=== PATIENT | female | born 1945 | race Caucasian/White ===

== ENCOUNTER 2018-04-11 09:04 | Inpatient (IN) | payer MEDICARE, OTHER ==
[2018-04-11] VITALS (11 sets, daily range): BP systolic 139–189; BP diastolic 75–100
[~2018-04-11] VITALS: Ht 162.6 cm; Wt 62.8 kg
[2018-04-11 09:38] LABS: BASOPHILS % (AUTO) 0 % (0-10); EOSINOPHILS # (AUTO) 0.1 10^3/uL (0.0-0.3); EOSINOPHILS % (AUTO) 1 % (0-10); HEMATOCRIT 40 % (35-52); HEMOGLOBIN 13.5 G/DL (11.5-16.0); LYMPHOCYTES # (AUTO) 1.3 X 10^3 (1.0-4.0); LYMPHOCYTES % (AUTO) 21 % (12-44); MEAN CORPUSCULAR HEMOGLOBIN 29 PG (25-34); MEAN CORPUSCULAR HGB CONC 33 G/DL (32-36); MEAN CORPUSCULAR VOLUME 86 FL (80-99); MEAN PLATELET VOLUME 10.2 FL (7.4-10.4); MONOCYTES # (AUTO) 0.6 X 10^3 (0.0-1.0); MONOCYTES % (AUTO) 9 % (0-12); NEUTROPHILS # (AUTO) 4.3 X 10^3 (1.8-7.8); NEUTROPHILS % (AUTO) 69 % (42-75); PLATELET COUNT 279 10^3/uL (130-400); RED BLOOD COUNT 4.72 10^6/uL (4.35-5.85); RED CELL DISTRIBUTION WIDTH 18.3 % (10.0-14.5); WHITE BLOOD COUNT 6.3 10^3/uL (4.3-11.0)
[2018-04-11 09:46] LABS: PROTHROMBIN TIME PATIENT 12.9 SEC (12.2-14.7)
[2018-04-11] MEDS ORDERED: FIORCET (09:51)
[2018-04-11] MEDS ORDERED: SUCR1TAB36 PO (09:51)
[2018-04-11] MEDS ORDERED: FLEC100T PO (09:51)
[2018-04-11] MEDS ORDERED: HYDR-3812 PO (09:52)
[2018-04-11] MEDS ORDERED: RANI150T90 PO (09:52)
[2018-04-11 09:53] LABS: ALANINE AMINOTRANSFERASE 12 U/L (0-55); ALBUMIN 4.5 GM/DL (3.2-4.5); ALKALINE PHOSPHATASE 66 U/L (40-136); BILIRUBIN,TOTAL 0.5 MG/DL (0.1-1.0); BUN/CREATININE RATIO 10; CALCIUM 9.5 MG/DL (8.5-10.1); CARBON DIOXIDE 18 MMOL/L (21-32); CHLORIDE 103 MMOL/L (98-107); CREATININE SERUM 0.82 MG/DL (0.60-1.30); GFR ESTIMATED > 60; GLUCOSE 107 MG/DL (70-105); MAGNESIUM 2.1 MG/DL (1.8-2.4); POTASSIUM 2.6 MMOL/L (3.6-5.0); SODIUM 139 MMOL/L (135-145); TOTAL PROTEIN 7.5 GM/DL (6.4-8.2)
[2018-04-11] MEDS ORDERED: NITROGLYCERIN 0.4 MG SL TABS BTL 25'S SL ONE (09:57)
[2018-04-11] MEDS ORDERED: ASPIRIN 81 MG CHEW (CHILDREN'S ASA) ONE (09:58)
[2018-04-11] MEDS ORDERED: ASPIRIN 81 MG CHEW (CHILDREN'S ASA) PO ONE (10:00)
[2018-04-11] MEDS: NITROGLYCERIN 0.4 MG SL TABS BTL 25'S SL PRN ×2 (10:00→10:15)
[2018-04-11 10:14] LABS: MYOGLOBIN SERUM 65.3 NG/ML (10.0-92.0)
--- NOTE | 2018-04-11 10:14 | ED Chest Pain ---
General Chief Complaint: Chest Pain Stated Complaint: HR OUT OF RHYTHM Nursing Triage Note: PT CO OF CHEST PAIN, SENT FROM EYE SURGEON OFFICE, PT STATES EKG WAS IRREGULAR AND NOT FEELING WELL. Nursing Sepsis Screen: No Definite Risk Source: patient, old records Exam Limitations: no limitations History of Present Illness Date Seen by Provider: Apr 11, 2018 Time Seen by Provider: 09:10 Initial Comments This 72-year-old woman presents to the emergency room with complaints of palpitations. [facility] being prepared for cataract surgery. Anesthesia referred her to the emergency room because of erratic blood pressures, irregular heart rhythm, and palpitations. Patient denied chest pain on first assessment. She states she has a history of abnormal heart rhythm but cannot elaborate. 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 Larson in [place]. Her primary care provider is not local. She lives in [place] and was only in [place] to have her eye surgery. She denies any history of coronary artery disease. She she reports that she has had a stent placed in the right lower extremity but perhaps she is referring to the cardiac catheterization she had previously. Patient is noted to be significantly hypertensive upon arrival. She feels anxious. Allergies and Home Medications Allergies Coded Allergies: No Known Drug Allergies (Unverified , 04/11/18) Home Medications Butalb/Acetaminophen/Caffeine 1 Each Capsule, 1 CAP PO BID PRN for MIGRAINE, ( Reported) Citalopram Hydrobromide 40 Mg Tablet, 40 MG PO DAILY, (Reported) Flecainide Acetate 150 Mg Tablet, 75 MG PO BID, (Reported) TAKES 1/2 (150MG) TABLET Hydrocodone/Acetaminophen 1 Each Tablet, 1 TAB PO BID PRN for PAIN-MODERATE, ( Reported) Hydroxyzine HCl 25 Mg Tablet, 25 MG PO BID PRN for ITCHING, (Reported) Mirtazapine 15 Mg Tablet, 15 MG PO HS PRN for SLEEP, (Reported) Omeprazole 20 Mg Capsule.dr, 20 MG PO HS, (Reported) Potassium Chloride 10 Meq Tablet.er, 10 MEQ PO TID, (Reported) Sucralfate 1 Gm Tablet, 1 GM PO ACHS, (Reported) Suvorexant 10 Mg Tablet, 10 MG PO HS, (Reported) Tizanidine HCl 4 Mg Tablet, 4 MG PO HS, (Reported) Patient Home Medication List Home Medication List Reviewed: Yes Review of Systems Constitutional: no symptoms reported EENTM: No Symptoms Reported Respiratory: Shortness of Air Cardiovascular: See HPI Gastrointestinal: No Symptoms Reported Genitourinary: No Symptoms Reported Musculoskeletal: no symptoms reported Skin: no symptoms reported Psychiatric/Neurological: See HPI Endocrine: No Symptoms Reported Hematologic/Lymphatic: No Symptoms Reported Past Fndiuzp-[id number]-[id number] Hx Past Med/Social Hx: Reviewed and Corrections made Patient Social History Alcohol Use: Denies Use Recreational Drug Use: No Smoking Status: Never a Smoker Recent Foreign Travel: No Contact w/Someone Who Travel: No Recent Infectious Disease Expo: No Recent Hopitalizations: No Physical Abuse: No Sexual Abuse: No Seasonal Allergies Seasonal Allergies: No Past Medical History Surgeries: Yes (esophageal,psi,adhesions,hyst,ectopic,gallbladder) Appendectomy, Cardiac (cardiac catheterization January 2017 with normal coronary arteries), Gallbladder, 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 Respiratory: Yes Asthma Cardiac: Yes High Cholesterol, Hypertension, Valvular Heart Disease Neurological: No : 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 Genitourinary: No Gastrointestinal: Yes Gastroesophageal Reflux Musculoskeletal: Yes Osteoporosis Endocrine: No HEENT: No Cancer: No Psychosocial: No Nursing Suicide Risk Score: 0 Integumentary: No Blood Disorders: No Physical Exam Vital Signs Vital Signs - First Documented 04/11/18 09:06 Temp 96.1 Pulse 82 Resp 16 B/P (MAP) 184/105 (131) O2 Delivery Nasal Cannula Capillary Refill : Less Than 3 Seconds General Appearance: No Apparent Distress, WD/WN HEENT: PERRL/EOMI, Normal ENT Inspection Neck: Normal Inspection Respiratory: Lungs Clear, Normal Breath Sounds, No Accessory Muscle Use, No Respiratory Distress Cardiovascular: No Edema, No Murmur, Normal Peripheral Pulses, Other ( bigeminal pattern to heart sounds) Gastrointestinal: Normal Bowel Sounds, Non Tender, Soft Extremity: Normal Capillary Refill, Normal Inspection, No Pedal Edema Neurologic/Psychiatric: Alert, Oriented x3, No Motor/Sensory Deficits, Normal Mood/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, 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 Norm as Tested Skin: Normal Color, Warm/Dry Progress/Results/Core Measures Results/Orders Lab Results Laboratory Tests Test 04/11/18 09:20 04/11/18 09:23 Range/Units White Blood Count 6.3 4.3-11.0 10^3/uL Red Blood Count 4.72 4.35-5.85 10^6/uL Hemoglobin 13.5 11.5-16.0 G/DL Hematocrit 40 35-52 % Mean Corpuscular Volume 86 80-99 FL Mean Corpuscular Hemoglobin 29 25-34 PG Mean Corpuscular Hemoglobin Concent 33 32-36 G/DL Red Cell Distribution Width 18.3 H 10.0-14.5 % Platelet Count 279 130-400 10^3/uL Mean Platelet Volume 10.2 7.4-10.4 FL Neutrophils (%) (Auto) 69 42-75 % Lymphocytes (%) (Auto) 21 12-44 % Monocytes (%) (Auto) 9 0-12 % Eosinophils (%) (Auto) 1 0-10 % Basophils (%) (Auto) 0 0-10 % Neutrophils # (Auto) 4.3 1.8-7.8 X 10^3 Lymphocytes # (Auto) 1.3 1.0-4.0 X 10^3 Monocytes # (Auto) 0.6 0.0-1.0 X 10^3 Eosinophils # (Auto) 0.1 0.0-0.3 10^3/uL Basophils # (Auto) 0.0 0.0-0.1 10^3/uL Prothrombin Time 12.9 12.2-14.7 SEC INR Comment 1.0 0.8-1.4 Activated Partial Thromboplast Time 30 24-35 SEC Sodium Level 139 135-145 MMOL/L Potassium Level 2.6 L 3.6-5.0 MMOL/L Chloride Level 103 98-107 MMOL/L Carbon Dioxide Level 18 L 21-32 MMOL/L Anion Gap 18 H 5-14 MMOL/L Blood Urea Nitrogen 8 7-18 MG/DL Creatinine 0.82 0.60-1.30 MG/DL Estimat Glomerular Filtration Rate > 60 BUN/Creatinine Ratio 10 Glucose Level 107 H 70-105 MG/DL Calcium Level 9.5 8.5-10.1 MG/DL Magnesium Level 2.1 1.8-2.4 MG/DL Total Bilirubin 0.5 0.1-1.0 MG/DL Aspartate Amino Transf (AST/SGOT) 20 5-34 U/L Alanine Aminotransferase (ALT/SGPT) 12 0-55 U/L Alkaline Phosphatase 66 40-136 U/L Myoglobin 65.3 10.0-92.0 NG/ML Troponin I < 0.30 <0.30 NG/ML Total Protein 7.5 6.4-8.2 GM/DL Albumin 4.5 3.2-4.5 GM/DL TSH [place] Testing 2.02 0.35-4.94 UIU/ML Glucometer 105 70-110 MG/DL My Orders Orders - ASHWINI JEFF MD Saline Lock/Iv-Start (04/11/18 09:07) Ekg Tracing (04/11/18 09:07) Monitor-Rhythm Ecg Trace Only (04/11/18 09:07) Cbc With Automated Diff (04/11/18:18) Magnesium (04/11/18:18) Chest 1 View, Ap/Pa Only (04/11/18:18) Cardiac Profile 1 (04/11/18:) Comprehensive Metabolic Panel (04/11/18:18) Myoglobin Serum (04/11/18:18) Protime With Inr (04/11/18:18) Partial Thromboplastin Time (04/11/18:18) O2 (04/11/18:18) Lipid Panel (04/12/18 06:00) Saline Lock/Iv-Start (04/11/18 09:18) Thyroid Analyzer (04/11/18 09:30) Ua Culture If Indicated (04/11/18 09:30) Aspirin Chewable Tablet (Baby Aspirin Ch (04/11/18 10:00) Nitroglycerin 0.4 Mg Btl 25's (Nitrostat (04/11/18 10:00) Nitroglycerin 0.4 Mg Btl 25's (Nitrostat (04/11/18 09:57) Aspirin Chewable Tablet (Baby Aspirin Ch (04/11/18 09:58) Lorazepam Injection (Ativan Injection) (04/11/18 10:30) Metoprolol Succinate (Xl) Tab (Toprol Xl (04/11/18 10:30) Potassium Cl 10meq/50ml Ivpb (Kcl 10 Meq (04/11/18 10:45) Saline Lock/Iv-Start (04/11/18 10:36) Ns Iv 1000 Ml (Sodium Chloride 0.9%) (04/11/18 10:36) Lorazepam Injection (Ativan Injection) (04/11/18 11:45) Ekg Tracing (04/11/18 11:41) Enoxaparin Injection (Lovenox Injection) (04/11/18 12:00) Medications Given in ED Current Medications Medications Dose Ordered Sig/Jaymie Route Start Time Stop Time Status Last Admin Dose Admin Aspirin 324 mg ONCE ONCE PO 04/11/18 10:00 04/11/18 10:01 DC 04/11/18 10:00 324 MG Lorazepam 0.25 mg ONCE ONCE IVP 04/11/18 10:30 04/11/18 10:31 DC 04/11/18 10:29 0.25 MG Lorazepam 0.25 mg ONCE ONCE IVP 04/11/18 11:45 04/11/18 11:46 DC 04/11/18 12:09 0.25 MG Nitroglycerin 0.4 mg UD PRN SL 04/11/18 10:00 04/11/18 10:25 DC 04/11/18 10:15 0.4 MG Potassium Chloride 50 ml @ 50 mls/hr ONCE ONCE IV 04/11/18 10:45 04/11/18 11:44 DC 04/11/18 10:44 50 MLS/HR Sodium Chloride 1,000 ml @ 0 mls/hr Q0M ONCE IV 04/11/18 10:36 04/11/18 10:37 DC 04/11/18 10:43 1,000 MLS/HR Vital Signs/I&O 04/11/18 04/11/18 09:06 09:06 Temp 96.1 Pulse 82 Resp 16 B/P (MAP) 184/105 (131) O2 Delivery Nasal Cannula Blood Pressure Mean: 131 Progress Progress Note #1: Time: 10:07 Progress Note Patient was seen and examined during initial assessment. At that time she denied chest pain but stated she had chest palpitations that felt like a throbbing or pounding. On repeat assessment she now states that she has chest pressure that is worsening. Aspirin and nitroglycerin are being administered. EKG demonstrated some ST depression, inverted T waves, and PVCs with bigeminy. Automated read identifies a left bundle branch block. I have no prior EKGs for comparison. Progress Note #2: Time: 10:14 Progress Note Case was reviewed with Dr. Burgess. He agreed with nitroglycerin and aspirin. He suggested adding Toprol-XL 50 mg by mouth as well. He requests that we obtain most recent cardiac reports including cardiac catheter, stress test, echo , and EKG from Dr. Larson or [facility]. Progress Note #3: Time: 11:53 Progress Note Patient was found to be significantly hypokalemic. She has received 10 mEq of potassium by IV route. She is also received approximately 500 mL of normal saline. Rhythm is now sinus with no ST elevation or depression. Patient felt nitroglycerin improved her pain but she still rates the pain as 6/10. She was given Ativan 0.25 mg by IV route which helped her anxiousness significantly. She is requesting a second dose. It has been ordered. Toprol-XL [address] Burgess requested a second dose of heart rate was greater than 60. Heart rate on her repeat EKG was only 58. Dr. Burgess also requested an injection of Lovenox 1 mg/kg. Documents from Dr. Larson's office were reviewed. Patient had a normal EKG in December of this year. She also had normal coronary arteries on cardiac catheterization about a year ago. Echocardiogram showed minor valvular problems and some hypokinesia at the apical septum. Ejection fraction was 50 percent. Patient is to be admitted to the ICU. Dr. Puente excepts admission and requests potassium 80 mEq by mouth administered by IV route over 8 hours. She also requested 1 g of magnesium by IV route. EKG #1: EKG Time: 09:10 Rate: 90 Comment Sinus rhythm with bigeminy and left bundle branch block with some ST depression. No ST elevation identified. EKG #2: EKG Time: 11:44 Rate: 58 Rhythm: Normal Sinus Intervals: Normal ECG Impression: Normal Comment Normal sinus rhythm with no ST elevation or depression. No abnormal intervals or axis deviation. Bundle branch block and bigeminy on prior EKG has resolved. EKG is similar to prior EKG from Dr. Larson's office. Diagnostic Imaging Diagonstic Imaging: Xray Plain Films/CT/US/NM/MRI: chest Comments NAME: MICHELLE MONTANO [facility] REC#: [id number] PT STATUS: REG ER : 1945 PHYSICIAN: ASHWINI JEFF MD ADMIT DATE: 04/11/18/ER Draft Date of Exam:04/11/18 CHEST 1 VIEW, AP/PA ONLY INDICATION: Chest pain. COMPARISON: None. FINDINGS: Single frontal view of the chest demonstrates normal heart size and pulmonary vascularity. The lungs are well aerated and clear. No large pleural effusion or pneumothorax is seen. The visualized osseous structures show no acute abnormalities. IMPRESSION: 1. No acute cardiopulmonary process. Dictated on workstation # [id number] Dict: 04/11/18 1014 Trans: 04/11/18 1016 [facility] [id number] Interpreted by: MACKENZIE AVITIA MD Departure Communication (Admissions) Time/Spoke to Admitting Phy: 11:45 Dr. Puente Time/Spoke to Consulting Phy: 11:40 Aditya Impression Primary Impression: Chest pain Qualified Codes: R07.9 - Chest pain, unspecified Additional Impressions: Hypokalemia Bigeminy Hypertension Qualified Codes: I10 - Essential (primary) hypertension Anxiety Disposition: 09 ADMITTED INPATIENT Condition: Improved Admissions Decision to Admit Reason: Admit from ER (General) Decision to Admit/Date: Apr 11, 2018 Time/Decision to Admit Time: 10:15 Departure-Patient Inst. Referrals: NO,LOCAL PHYSICIAN (PCP/Family) Primary Care Physician ASHWINI JEFF MD Apr 11, 2018 10:14
--- NOTE | 2018-04-11 10:17 | Diagnostic Imaging Report ---
INDICATION: Chest pain. COMPARISON: None. FINDINGS: Single frontal view of the chest demonstrates normal heart size and pulmonary vascularity. The lungs are well aerated and clear. No large pleural effusion or pneumothorax is seen. The visualized osseous structures show no acute abnormalities. IMPRESSION: 1. No acute cardiopulmonary process. Dictated by: Dictated on workstation # [id number]
[2018-04-11] MEDS ORDERED: LORazepam INJ 2 MG/ML (ATIVAN) VIAL IVP ONE ×2 (10:30→11:45)
[2018-04-11] MEDS ORDERED: meTOproloL SUCCINATE 50 MG (TOPROL XL) TAB PO SCH (10:30)
[2018-04-11] MEDS ORDERED: NS IV 1000 ML 1,000 ML IV ONE (10:36)
[2018-04-11] MEDS ORDERED: POTASSIUM CL 10MEQ/50ML IVPB 50 ML IV ONE (10:45)
[2018-04-11] MEDS ORDERED: ENOXAPARIN 60 MG/0.6 ML (LOVENOX) SYR SC ONE (12:00)
[2018-04-11 12:08] LABS: BILIRUBIN,URINE NEGATIVE (NEGATIVE); CLARITY,URINE CLEAR; COLOR,URINE YELLOW; GLUCOSE, URINE (UA) NEGATIVE (NEGATIVE); KETONES,URINE 3+ (NEGATIVE); LEUKOCYTE ESTERASE ,URINE 1+ (NEGATIVE); NITRITE,URINE NEGATIVE (NEGATIVE); PH,URINE 6 (5-9); PROTEIN,URINE 2+ (NEGATIVE); UROBILINOGEN,URINE NORMAL (NORMAL)
[2018-04-11 12:15] LABS: BACTERIA,URINE TRACE /HPF; SQUAMOUS EPITHELIAL CELL,UR 0-2 /HPF; WBC,URINE 0-2 /HPF
--- NOTE | 2018-04-11 12:46 | Consultation-Cardiology ---
HPI-Cardiology Cardiology Consultation: Date of Consultation 04/11/18 Time Seen by Provider: 11:50 Date of Admission Attending Physician Alysia Puente DO Admitting Physician Carmella,Local Physician Consulting Physician Lydia Burgess MD HPI: Chief Complaint: Chest pain Ventricular bigeminy Ms. Crocker is a 72 year old female being admitted to ICU from the ED. She reports he symptoms started last evening at home. She reports she was having a significant amt of leg cramping. She generally felt unwell. She went to visit her neighbor outside. She began to have palpitations and chest heaviness which was mid-sternal with occ sharp twinges. It did not radiate. She reports the chest heaviness was constant. She went to Dr. Gruber's office this morning for cataract surgery and was told her BP was high and her HR was high. She was then referred to the ED. She states she was having leg pain last week and was seen by her PCP. She had a venous Doppler. She is currently feeling better, but continues to have some mild chest pressure. Review of Systems-Cardiology Review of Systems Constitutional: As described under HPI Eyes: No vision change Ears/Nose/Throat: No epistaxis Respiratory: As described under HPI Cardiovascular: As described under HPI Gastrointestinal: constipation Genitourinary: No dysuria, No hematuria Musculoskeletal: no symptoms reported Skin: No rash, No ulcerations Psychiatric/Neurological: anxiety; No syncope Hematologic: No bleeding abnormalities PSF-[id number]-[id number] Hx Patient Social History Alcohol Use: Denies Use Recreational Drug Use: No Smoking Status: Never a Smoker Recent Foreign Travel: No Recent Infectious Disease Expo: No Hospitalization with Isolation: Denies Past Medical History PMH As described under Assessment. Family Medical History Family Medical History: No reported family h/o CAD or SCD. Allergies and Home Medications Allergies Coded Allergies: No Known Drug Allergies (Unverified , 04/11/18) Home Medications Butalb/Acetaminophen/Caffeine 1 Each Capsule, 1 CAP PO BID PRN for MIGRAINE, ( Reported) Citalopram Hydrobromide 40 Mg Tablet, 40 MG PO DAILY, (Reported) Flecainide Acetate 150 Mg Tablet, 75 MG PO BID, (Reported) TAKES 1/2 (150MG) TABLET Hydrocodone/Acetaminophen 1 Each Tablet, 1 TAB PO BID PRN for PAIN-MODERATE, ( Reported) Hydroxyzine HCl 25 Mg Tablet, 25 MG PO BID PRN for ITCHING, (Reported) Mirtazapine 15 Mg Tablet, 15 MG PO HS PRN for SLEEP, (Reported) Omeprazole 20 Mg Capsule.dr, 20 MG PO HS, (Reported) Potassium Chloride 10 Meq Tablet.er, 10 MEQ PO TID, (Reported) Sucralfate 1 Gm Tablet, 1 GM PO ACHS, (Reported) Suvorexant 10 Mg Tablet, 10 MG PO HS, (Reported) Tizanidine HCl 4 Mg Tablet, 4 MG PO HS, (Reported) Physical Exam-Cardiology Physical Exam Vital Signs/I&O 04/11/18 04/11/18 04/12/18 04/12/18 23:00 23:52 00:00 00:00 Temp 97.4 Pulse 55 56 Resp 16 16 B/P (MAP) 167/88 (114) 162/82 (108) Pulse Ox 94 99 96 O2 Delivery Room Air Room Air Nasal Cannula 04/12/18 04/12/18 04/12/18 04/12/18 01:00 01:00 02:00 03:00 Pulse 58 57 61 61 Resp 13 18 13 B/P (MAP) 174/86 (115) 170/91 (117) 167/96 (119) Pulse Ox 98 98 99 O2 Delivery Room Air Room Air Room Air 04/12/18 04/12/18 04/12/18 04/12/18 04:00 04:00 04:00 05:00 Temp 98.4 Pulse 58 61 Resp 12 16 B/P (MAP) 165/81 (109) 171/87 (115) Pulse Ox 96 100 100 O2 Delivery Nasal Cannula Room Air Room Air 04/12/18 04/12/18 04/12/18 06:00 07:00 07:00 Pulse 61 57 56 Resp 12 16 B/P (MAP) 140/72 (94) 126/72 (90) Pulse Ox 90 93 O2 Delivery Room Air Room Air 04/12/18 00:00 Intake Total 810 ml Output Total 600 ml Balance 210 ml Capillary Refill : Less Than 3 Seconds Constitutional: AAO x 3, well-developed, well-nourished HEENT: PERRL, hearing is well preserved, oral hygience is good Neck: No carotid bruit; carotid pulses are 2 + bilaterally Respiratory: chest expansion is symmetric, chest is bilaterally symmetric, lungs clear to auscultation Cardiovascular: regular rate-rhythm; No JVD; S1 and S2 Gastrointestinal: soft, round, audible bowel sounds Rectal: deferred Extremities: no lower extremity edema bilateral Neurologic/Psychiatric: grossly intact Skin: No rash, No ulcerations Data Review Labs Laboratory Tests 04/11/18 11:55: Urine Color YELLOW, Urine Clarity CLEAR, Urine pH 6, Urine Specific [place]inson 1.015L, Urine Protein 2+H, Urine Glucose (UA) NEGATIVE, Urine Ketones 3+H, Urine Nitrite NEGATIVE, Urine Bilirubin NEGATIVE, Urine Urobilinogen NORMAL, Urine Leukocyte Esterase 1+H, Urine RBC (Auto) NEGATIVE, Urine RBC NONE, Urine WBC 0-2, Urine Squamous Epithelial Cells 0-2, Urine Crystals NONE, Urine Bacteria TRACE, Urine Casts NONE, Urine Mucus MODERATEH, Urine Culture Indicated NO 04/11/18 19:15: Troponin I < 0.30 04/12/18 03:35: White Blood Count 6.3, Red Blood Count 4.25L, Hemoglobin 12.3, Hematocrit 37, Mean Corpuscular Volume 87, Mean Corpuscular Hemoglobin 29, Mean Corpuscular Hemoglobin Concent 33, Red Cell Distribution Width 18.1H, Platelet Count 262, Mean Platelet Volume 10.3, Sodium Level 135, Potassium Level 3.6, Chloride Level 104, Carbon Dioxide Level 18L, Anion Gap 13, Blood Urea Nitrogen 6L, Creatinine 0.65, Estimat Glomerular Filtration Rate > 60, BUN/Creatinine Ratio 9 , Glucose Level 135H, Calcium Level 8.2L, Phosphorus Level 2.0L, Magnesium Level 2.3, Total Bilirubin 0.4, Aspartate Amino Transf (AST/SGOT) 31, Alanine Aminotransferase (ALT/SGPT) 24, Alkaline Phosphatase 62, Total Protein 6.8, Albumin 4.0, Triglycerides Level 107, Cholesterol Level 270H, LDL Cholesterol Direct 196H, VLDL Cholesterol 21, HDL Cholesterol 63H ECG Impression ECG Comment SR with ventricular bigeminy A/P-Cardiology Assessment/Admission Diagnosis Chest pain of undetermined etiology Palpitations - ventricular bigeminy Hypokalemia of undetermined etiology H/O PAF - documented in Oct 2017 at [facility] - was on Amiodarone, then changed to Flecainide BID. Not started on OAC d/t reported low CHADs-VASC score Echocardiogram in Dec 2017 at [facility] by Dr. Larson showed LVEF 50%. LA enlargement. RA, RV enlargement. Mild MR Cardiac cath of January 2017 at [facility] by Dr. Larson showed normal coronaries. Normal LVEF. GERD H/O esophageal stricture with dilation Clinical Quality Measures AMI/AHF: ASA po Prior to arrival: SHAW Mccurdy Apr 11, 2018 12:46
[2018-04-11] MEDS ORDERED: CATHETER FLUSH 10 ML SYR IV PRN (13:15)
[2018-04-11] MEDS ORDERED: HYDROcodone/APAP 5 MG/325 MG (LORTAB) TAB PO PRN (13:30)
[2018-04-11] MEDS: POTASSIUM CL 10 MEQ/50 ML IVPB (PRE-MIX) IV SCH ×7 (13:30→22:33)
[2018-04-11] MEDS ORDERED: ACETAMINOPHEN 500 MG TAB (TYLENOL) PO PRN (13:30)
[2018-04-11] MEDS: NS IV 1000 ML 1,000 ML IV SCH (13:30)
[2018-04-11] MEDS ORDERED: FLEC150T15 PO (13:44)
[2018-04-11] MEDS ORDERED: BUTA1CAP41 PO (13:44)
[2018-04-11] MEDS ORDERED: CITA40TA11 PO (13:44)
[2018-04-11] MEDS ORDERED: POTA10TA10 PO (13:44)
[2018-04-11] MEDS ORDERED: SUVO10TA2 PO (13:45)
[2018-04-11] MEDS ORDERED: OMEP20CA12 PO (13:45)
[2018-04-11] MEDS ORDERED: CLON0.5T3 PO (13:45)
[2018-04-11] MEDS ORDERED: TIZA4TAB3 PO (13:52)
[2018-04-11] MEDS ORDERED: SUCR1TAB PO (13:52)
[2018-04-11] MEDS ORDERED: HYDR-700 PO (13:52)
[2018-04-11] MEDS ORDERED: MIRT15TA6 PO (13:52)
[2018-04-11] MEDS: LORazepam 0.5 MG (ATIVAN) TABLET PO PRN ×2 (14:37→18:45)
--- NOTE | 2018-04-11 17:29 | Consultation-Cardiology ---
HPI-Cardiology Cardiology Consultation: Date of Consultation 04/11/18 Time Seen by Provider: 13:00 Date of Admission Attending Physician Alysia Puente DO Admitting Physician Carmella,Local Physician Consulting Physician DAVID QUINTERO MD, MA, FACP, FACC, FSCAI, CCDS HPI: Chief Complaint: Chest pain Ventricular bigeminy Ms. Crocker is a 72 year old female being admitted to ICU from the ED. She reports he symptoms started last evening at home. She reports she was having a significant amt of leg cramping. She generally felt unwell. She went to visit her neighbor outside. She began to have palpitations and chest heaviness which was mid-sternal with occ sharp twinges. It did not radiate. She reports the chest heaviness was constant. She went to Dr. Gruber's office this morning for cataract surgery and was told her BP was high and her HR was high. She was then referred to the ED. She states she was having leg pain last week and was seen by her PCP. She had a venous Doppler. She is currently feeling better, but continues to have some mild chest pressure. Review of Systems-Cardiology Review of Systems Constitutional: As described under HPI Eyes: blurred vision; No vision change Ears/Nose/Throat: No epistaxis Respiratory: As described under HPI Cardiovascular: As described under HPI Gastrointestinal: constipation Genitourinary: No dysuria, No hematuria Musculoskeletal: no symptoms reported Skin: No rash, No ulcerations Psychiatric/Neurological: anxiety; No syncope Hematologic: No bleeding abnormalities TPE-Plimvz-Cfsice Hx Patient Social History Alcohol Use: Denies Use Recreational Drug Use: No Smoking Status: Never a Smoker Recent Foreign Travel: No Recent Infectious Disease Expo: No Hospitalization with Isolation: Denies Physical Abuse Screen: No Sexual Abuse: No Immunizations Up To Date Date of Pneumonia Vaccine: Aug 06, 2017 Past Medical History PMH As described under Assessment. Family Medical History Family Medical History: No reported family h/o CAD or SCD. Family History: Cardiovascular disease G8 BROTHER FH: lung cancer G8 BROTHER FHx: lung disease 19 FATHER Allergies and Home Medications Allergies Coded Allergies: No Known Drug Allergies (Unverified , 04/11/18) Home Medications Butalb/Acetaminophen/Caffeine 1 Each Capsule, 1 CAP PO BID PRN for MIGRAINE, ( Reported) Citalopram Hydrobromide 40 Mg Tablet, 40 MG PO DAILY, (Reported) Flecainide Acetate 150 Mg Tablet, 75 MG PO BID, (Reported) TAKES 1/2 (150MG) TABLET Hydrocodone/Acetaminophen 1 Each Tablet, 1 TAB PO BID PRN for PAIN-MODERATE, ( Reported) Hydroxyzine HCl 25 Mg Tablet, 25 MG PO BID PRN for ITCHING, (Reported) Mirtazapine 15 Mg Tablet, 15 MG PO HS PRN for SLEEP, (Reported) Omeprazole 20 Mg Capsule.dr, 20 MG PO HS, (Reported) Potassium Chloride 10 Meq Tablet.er, 10 MEQ PO TID, (Reported) Sucralfate 1 Gm Tablet, 1 GM PO ACHS, (Reported) Suvorexant 10 Mg Tablet, 10 MG PO HS, (Reported) Tizanidine HCl 4 Mg Tablet, 4 MG PO HS, (Reported) Patient Home Medication List Home Medication List Reviewed: Yes Physical Exam-Cardiology Physical Exam Vital Signs/I&O 04/11/18 04/11/18 04/11/18 04/11/18 09:06 09:06 12:50 12:50 Temp 96.1 98.5 Pulse 82 59 56 Resp 16 20 12 B/P (MAP) 184/105 (131) 189/95 (126) 163/81 Pulse Ox 98 97 O2 Delivery Nasal Cannula Room Air 04/11/18 04/11/18 04/11/18 04/11/18 13:00 14:00 15:00 16:00 Temp 98.3 Pulse 60 74 58 57 Resp 20 23 22 B/P (MAP) 139/100 (113) 159/77 (104) 166/75 (105) Pulse Ox 97 94 96 O2 Delivery Room Air Room Air Room Air Capillary Refill : Less Than 3 Seconds Constitutional: AAO x 3, well-developed, well-nourished HEENT: PERRL, hearing is well preserved, oral hygience is good Neck: No carotid bruit; carotid pulses are 2 + bilaterally Respiratory: chest expansion is symmetric, chest is bilaterally symmetric, lungs clear to auscultation Cardiovascular: regular rate-rhythm; No JVD; S1 and S2 Gastrointestinal: soft, round, audible bowel sounds Rectal: deferred Extremities: no lower extremity edema bilateral Neurologic/Psychiatric: grossly intact Skin: No rash, No ulcerations Data Review Labs Laboratory Tests 04/11/18 09:20: White Blood Count 6.3, Red Blood Count 4.72, Hemoglobin 13.5, Hematocrit 40, Mean Corpuscular Volume 86, Mean Corpuscular Hemoglobin 29, Mean Corpuscular Hemoglobin Concent 33, Red Cell Distribution Width 18.3H, Platelet Count 279, Mean Platelet Volume 10.2, Neutrophils (%) (Auto) 69, Lymphocytes (%) (Auto) 21 , Monocytes (%) (Auto) 9, Eosinophils (%) (Auto) 1, Basophils (%) (Auto) 0, Neutrophils # (Auto) 4.3, Lymphocytes # (Auto) 1.3, Monocytes # (Auto) 0.6, Eosinophils # (Auto) 0.1, Basophils # (Auto) 0.0, Prothrombin Time 12.9, INR Comment 1.0, Activated Partial Thromboplast Time 30, Sodium Level 139, Potassium Level 2.6L, Chloride Level 103, Carbon Dioxide Level 18L, Anion Gap 18H, Blood Urea Nitrogen 8, Creatinine 0.82, Estimat Glomerular Filtration Rate > 60, BUN/Creatinine Ratio 10, Glucose Level 107H, Calcium Level 9.5, Magnesium Level 2.1, Total Bilirubin 0.5, Aspartate Amino Transf (AST/SGOT) 20, Alanine Aminotransferase (ALT/SGPT) 12, Alkaline Phosphatase 66, Myoglobin 65.3, Troponin I < 0.30, Total Protein 7.5, Albumin 4.5, TSH [place] Testing 2.02 04/11/18 09:23: Glucometer 105 04/11/18 11:55: Urine Color YELLOW, Urine Clarity CLEAR, Urine pH 6, Urine Specific [place] 1.015L, Urine Protein 2+H, Urine Glucose (UA) NEGATIVE, Urine Ketones 3+H, Urine Nitrite NEGATIVE, Urine Bilirubin NEGATIVE, Urine Urobilinogen NORMAL, Urine Leukocyte Esterase 1+H, Urine RBC (Auto) NEGATIVE, Urine RBC NONE, Urine WBC 0-2, Urine Squamous Epithelial Cells 0-2, Urine Crystals NONE, Urine Bacteria TRACE, Urine Casts NONE, Urine Mucus MODERATEH, Urine Culture Indicated NO Laboratory Tests 04/11/18 09:20 A/P-Cardiology Assessment/Admission Diagnosis Chest pain of undetermined etiology; no evidence of ACS so far Marked hypokalemia, etiology undetermined. H/o hypokalemia for which she on replacement NSR with LBBB and ventricular bigeminy, probably related to hypokalemia H/O PAF - documented in Oct 2017 at [facility] - was on Amiodarone, then changed to Flecainide BID. Not started on OAC d/t reported low CHADs-VASC score Echocardiogram in Dec 2017 at [facility] by Dr. Larson showed LVEF 50%. LA enlargement. RA, RV enlargement. Mild MR Cardiac cath of January 2017 at [facility] by Dr. Larson showed normal coronaries. Normal LVEF. GERD H/O esophageal stricture with dilation Discussion and Recomendations * We obtained, reviewed and discussed her records from [facility] * Replenish K * Replacing K has resulted in normalization of ECG * Monitor labs * Eval for ACS * Further recs based on hosp course Clinical Quality Measures AMI/AHF: ASA po Prior to arrival: No DVT/VTE Risk/Contraindication: Risk Factor Score Per Nursin RFS Level Per Nursing on Admit: 2=Moderate DAVID QUINTERO MD FACP FAC CCDS Apr 11, 2018 17:29
[2018-04-11] MEDS ORDERED: amLODIPine 10 MG (NORVASC) TAB PO NR (17:30)
[2018-04-11] MEDS: fentaNYL INJECTION 100 MCG/2 ML AMP IVP PRN ×4 (17:38→23:51)
[2018-04-11] MEDS ORDERED: NITROGLYCERIN 2% OINT 1 GM UNIT DOSE PACKET ONE (18:30)
[2018-04-11] MEDS ORDERED: ANTACID SUSP 30 ML UDC (MYLANTA) PO NR (18:30)
[2018-04-11] MEDS ORDERED: NITROGLYCERIN 0.4 MG SL TABS BTL 25'S SL PRN (18:30)
[2018-04-11] MEDS: PANTOPRAZOLE 40 MG/10 ML (PROTONIX) VIAL IV SCH (18:33)
[2018-04-11] MEDS: NITROGLYCERIN 2% OINT 1 GM UNIT DOSE PACKET TOP SCH ×2 (18:33→22:34)
[2018-04-11] MEDS: KCL 20 MEQ TAB (K-DUR) PO SCH (19:41)
[2018-04-11] MEDS: DOCUSATE SODIUM 100 MG (COLACE) CAP PO SCH (20:42)
[2018-04-11] MEDS: ONDANSETRON 4 MG/2 ML (SDV) Z0FRAN IVP PRN (20:42)
[2018-04-11] MEDS ORDERED: MAGNESIUM 1 GM/100 ML IVPB 100 ML IV ONE (21:00)
[2018-04-12] VITALS (17 sets, daily range): BP systolic 110–174; BP diastolic 69–96
[2018-04-12] MEDS: fentaNYL INJECTION 100 MCG/2 ML AMP IVP PRN ×2 (02:36→08:00)
[2018-04-12] MEDS: NS IV 1000 ML 1,000 ML IV SCH (02:36)
[2018-04-12] MEDS: ONDANSETRON 4 MG/2 ML (SDV) Z0FRAN IVP PRN ×2 (02:36→08:00)
[2018-04-12] MEDS: LORazepam 0.5 MG (ATIVAN) TABLET PO PRN ×2 (03:45→11:12)
[2018-04-12] MEDS: ANTACID SUSP 30 ML UDC (MYLANTA) PO PRN ×2 (03:46→11:12)
[2018-04-12 03:53] LABS: HEMOGLOBIN 12.3 G/DL (11.5-16.0); MEAN PLATELET VOLUME 10.3 FL (7.4-10.4); RED BLOOD COUNT 4.25 10^6/uL (4.35-5.85); RED CELL DISTRIBUTION WIDTH 18.1 % (10.0-14.5); WHITE BLOOD COUNT 6.3 10^3/uL (4.3-11.0)
[2018-04-12 04:18] LABS: ALANINE AMINOTRANSFERASE 24 U/L (0-55); ALKALINE PHOSPHATASE 62 U/L (40-136); BILIRUBIN,TOTAL 0.4 MG/DL (0.1-1.0); BUN/CREATININE RATIO 9; CALCIUM 8.2 MG/DL (8.5-10.1); CARBON DIOXIDE 18 MMOL/L (21-32); CHLORIDE 104 MMOL/L (98-107); CHOLESTEROL 270 MG/DL (< 200); CREATININE SERUM 0.65 MG/DL (0.60-1.30); CREATININE SERUM 0.66 MG/DL (0.60-1.30); GFR ESTIMATED > 60; GLUCOSE 135 MG/DL (70-105); GLUCOSE 139 MG/DL (70-105); HDL CHOLESTEROL 63 MG/DL (40-60); MAGNESIUM 2.3 MG/DL (1.8-2.4); POTASSIUM 3.6 MMOL/L (3.6-5.0); POTASSIUM 3.7 MMOL/L (3.6-5.0); SODIUM 135 MMOL/L (135-145); TOTAL PROTEIN 6.8 GM/DL (6.4-8.2); TRIGLYCERIDES 107 MG/DL (<150); VLDL CHOLESTEROL 21 MG/DL (5-40)
--- NOTE | 2018-04-12 05:01 | Pulmonary Consultation ---
History of Present Illness History of Present Illness Date of Consultation 04/12/18 04:56 Time Seen by Provider: 04:56 Date of Admission History of Present Illness 72yo presented to ED secondary to palpitations from [facility]. She was being prepared for Cataract surgery. Anesthesia deferred pt to ED secondary to BP and irregular cardiac rhythm and palpitations. Pt started having CP/pressure after hospitalization. Cardiology is consulted. No known hx of CAD. I am consulted for ICU management. Allergies and Home Medications Allergies Coded Allergies: No Known Drug Allergies (Unverified , 04/11/18) Home Medications Butalb/Acetaminophen/Caffeine 1 Each Capsule, 1 CAP PO BID PRN for MIGRAINE, ( Reported) Citalopram Hydrobromide 40 Mg Tablet, 40 MG PO DAILY, (Reported) Flecainide Acetate 150 Mg Tablet, 75 MG PO BID, (Reported) TAKES 1/2 (150MG) TABLET Hydrocodone/Acetaminophen 1 Each Tablet, 1 TAB PO BID PRN for PAIN-MODERATE, ( Reported) Hydroxyzine HCl 25 Mg Tablet, 25 MG PO BID PRN for ITCHING, (Reported) Mirtazapine 15 Mg Tablet, 15 MG PO HS PRN for SLEEP, (Reported) Omeprazole 20 Mg Capsule.dr, 20 MG PO HS, (Reported) Potassium Chloride 10 Meq Tablet.er, 10 MEQ PO TID, (Reported) Sucralfate 1 Gm Tablet, 1 GM PO ACHS, (Reported) Suvorexant 10 Mg Tablet, 10 MG PO HS, (Reported) Tizanidine HCl 4 Mg Tablet, 4 MG PO HS, (Reported) Past Nhhnmuf-Fqmcta-Zlvtem Hx Past Med/Social Hx: Reviewed and Corrections made Patient Social History Alcohol Use: Denies Use Recreational Drug Use: No Smoking Status: Never a Smoker Recent Foreign Travel: No Contact w/Someone Who Travel: No Recent Infectious Disease Expo: No Recent Hopitalizations: No Physical Abuse: No Sexual Abuse: No Immunizations Up To Date Date of Pneumonia Vaccine: Aug 06, 2017 Seasonal Allergies Seasonal Allergies: No Past Medical History Surgeries: Yes (esophageal,psi,adhesions,hyst,ectopic,gallbladder) Appendectomy, Cardiac (cardiac catheterization January 2017 with normal coronary arteries), Gallbladder, 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 Respiratory: Yes Asthma Cardiac: Yes (MITRAL VALVE PROLAPSE) High Cholesterol, Hypertension, Valvular Heart Disease Neurological: No : 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: 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 Genitourinary: No Gastrointestinal: Yes Gastroesophageal Reflux, Chronic Constipation Musculoskeletal: Yes Osteoporosis, Arthritis Endocrine: No HEENT: Yes Cataract Cancer: No Psychosocial: No Nursing Suicide Risk Score: 0 Integumentary: No Blood Disorders: No Family Medical History Cardiovascular disease G8 BROTHER FH: lung cancer G8 BROTHER FHx: lung disease 19 FATHER Review of Systems Time Seen by Provider: 05:09 Constitutional: Weakness, Malaise; No: Fever, Chills, Sweats, Other Eyes: No: Pain, Vision change, Conjunctivae inflammation, Eyelid inflammation, Other, Redness ENT: No: Ear pain, Ear discharge, Nose pain, Nose discharge, Nose congestion, Mouth pain, Mouth swelling, Throat pain, Throat swelling, Other Respiratory: Cough, Dry, Shortness of breath; No: Wheezing, Hemoptysis Cardiovascular: Palpitations; No: Paroxysmal Noc. Dyspnea, Lt Headedness Gastrointestinal: Nausea; No: Vomiting, Abdominal Pain, Diarrhea, Constipation , Melena, Hematochezia, Other Genitourinary: No Dysuria, No Frequency, No Incontinence, No Hematuria, No Retention, No Other Neurological: Weakness Exam Exam Vital Signs Date Time Temp Pulse Resp B/P (MAP) Pulse Ox O2 Delivery O2 Flow Rate FiO2 04/12/18 04:00 58 12 165/81 (109) 100 Room Air 04/12/18 04:00 98.4 04/12/18 04:00 96 Nasal Cannula 04/12/18 03:00 61 13 167/96 (119) 99 Room Air 04/12/18 02:00 61 18 170/91 (117) 98 Room Air 04/12/18 01:00 57 04/12/18 01:00 58 13 174/86 (115) 98 Room Air 04/12/18 00:00 96 Nasal Cannula 04/12/18 00:00 56 16 162/82 (108) 99 Room Air 04/11/18 23:52 97.4 04/11/18 23:00 55 16 167/88 (114) 94 Room Air 04/11/18 22:00 56 19 169/82 (111) 94 Room Air 04/11/18 21:00 61 14 152/81 (104) 96 Room Air 04/11/18 20:00 55 14 164/93 (116) 95 Room Air 04/11/18 20:00 97 Room Air 04/11/18 19:44 97.3 04/11/18 19:00 54 04/11/18 19:00 56 12 174/85 (114) 98 Room Air 04/11/18 18:03 62 20 188/96 (126) 95 Room Air 04/11/18 17:00 57 14 177/98 (124) 97 Room Air 04/11/18 16:00 98.3 57 22 166/75 (105) 96 Room Air 04/11/18 15:00 58 23 159/77 (104) 94 Room Air 04/11/18 14:00 74 20 139/100 (113) 97 Room Air 04/11/18 13:00 60 04/11/18 12:50 56 12 163/81 97 04/11/18 12:50 98.5 59 20 189/95 (126) 98 Room Air 04/11/18 09:06 96.1 82 16 184/105 (131) 04/11/18 09:06 Nasal Cannula I & O 04/12/18 07:00 Intake Total 1460 ml Output Total 600 ml Balance 860 ml General Appearance: No Apparent Distress, WD/WN HEENT: PERRL/EOMI, Normal ENT Inspection Neck: Normal Inspection Respiratory: Lungs Clear, Normal Breath Sounds, No Accessory Muscle Use, No Respiratory Distress Cardiovascular: No Edema, No Murmur, Normal Peripheral Pulses, Other ( bigeminal pattern to heart sounds) Capillary Refill: Less Than 3 Seconds Extremity: Normal Capillary Refill, Normal Inspection, No Pedal Edema Neurologic/Psychiatric: Alert, Oriented x3, No Motor/Sensory Deficits, Normal Mood/Affect, is analyst II-XII Norm as Tested Skin: Normal Color, Warm/Dry Results Lab Laboratory Tests 04/11/18 09:20 04/12/18 03:35 Assessment/Plan Assessment/Plan Chest pain - midsternal -cardiology is following -Troponin x2 is negative Nausea Hypokalemia, hypophos -replace Nocturnal hypoxia - noted by RN and worse after Fentanyl -- probably secondary to NICANOR -Will work up for NICANOR as out patient Anxiety disorder NSR with LBBB and ventricular bigeminy Labs and radiology reviewed. Transfer to [facility] if ok with Cardiology. 254 SAVI ORELLANA DO Apr 12, 2018 05:01
[2018-04-12] MEDS ORDERED: POTASSIUM PHOSPHATE INJ 30 MM in NS (IVPB) 250 ML IV ONE (05:15)
[2018-04-12] MEDS: KCL 20 MEQ TAB (K-DUR) PO SCH ×2 (05:22→16:26)
[2018-04-12] MEDS: PANTOPRAZOLE 40 MG/10 ML (PROTONIX) VIAL IV SCH (07:59)
[2018-04-12] MEDS: NITROGLYCERIN 2% OINT 1 GM UNIT DOSE PACKET TOP SCH ×2 (07:59→13:00)
[2018-04-12] MEDS: DOCUSATE SODIUM 100 MG (COLACE) CAP PO SCH (08:00)
[2018-04-12] MEDS ORDERED: amLODIPine 10 MG (NORVASC) TAB PO SCH (09:00)
[2018-04-12] MEDS ORDERED: meTOproloL SUCCINATE 50 MG (TOPROL XL) TAB PO SCH (09:00)
[2018-04-12] MEDS ORDERED: ASPIRIN E.C. 81 MG (ECOTRIN) TAB PO SCH (09:00)
[2018-04-12] MEDS ORDERED: amLODIPine 5 MG (NORVASC) TAB PO SCH (09:00)
--- NOTE | 2018-04-12 09:22 | Diagnostic Imaging Report ---
INDICATION: Hypertension and anxiety. Frontal chest obtained at 3:13 a.m. and compared to yesterday FINDINGS: Heart is borderline in size. Mediastinal silhouette is unremarkable. The lungs are clear. There is no pneumothorax or pleural fluid. IMPRESSION: Borderline heart size with no acute infiltrate or pneumothorax or pleural fluid. Dictated by: Dictated on workstation # [id number]
[2018-04-12] MEDS ORDERED: PROMETHAZINE INJ 25 MG/ML (PHENERGAN) AMP IVP PRN (10:00)
--- NOTE | 2018-04-12 10:15 | Progress Note-Cardiology ---
Cardiology SOAP Progress Note Subjective: C/O nausea and epigastric tenderness. C/O constipation. No c/o palpitations, dyspnea. Objective: I&O/Vital Signs 04/12/18 04/12/18 04/12/18 04/12/18 07:00 07:00 08:00 08:00 Temp 98.2 Pulse 57 56 61 Resp 16 16 B/P (MAP) 126/72 (90) 136/73 (94) Pulse Ox 93 93 O2 Delivery Room Air Nasal Cannula O2 Flow Rate 2.00 04/12/18 04/12/18 04/12/18 04/12/18 08:00 09:00 10:00 11:00 Pulse 60 62 62 Resp 16 11 14 B/P (MAP) 151/81 (104) 144/75 (98) 140/79 (99) Pulse Ox 98 100 99 O2 Delivery Nasal Cannula Nasal Cannula Nasal Cannula Nasal Cannula O2 Flow Rate 2.00 2.00 2.00 2.00 04/12/18 04/12/18 04/12/18 04/12/18 12:00 12:00 12:00 12:10 Temp 97.8 Pulse 63 Resp 14 B/P (MAP) 132/69 (90) Pulse Ox 99 O2 Delivery Nasal Cannula Nasal Cannula High Flow N/C O2 Flow Rate 2.00 15.00 04/12/18 04/12/18 04/12/18 04/12/18 13:00 13:00 13:30 14:00 Pulse 64 64 61 Resp 13 16 B/P (MAP) 147/83 (104) 136/72 (93) Pulse Ox 100 100 O2 Delivery High Flow N/C High Flow N/C High Flow N/C O2 Flow Rate 15.00 6.00 6.00 04/12/18 04/12/18 04/12/18 04/12/18 15:00 15:15 15:53 16:00 Pulse 63 72 Resp 11 16 B/P (MAP) 145/79 (101) 110/74 (86) Pulse Ox 100 100 94 O2 Delivery High Flow N/C Room Air Room Air O2 Flow Rate 6.00 6.00 04/12/18 04/12/18 16:00 17:11 Temp 99.2 O2 Delivery Room Air 04/12/18 00:00 Intake Total 810 ml Output Total 600 ml Balance 210 ml Weight (Pounds): 138 Weight (Ounces): 8.0 Weight (Calculated Kilograms): [id number] Constitutional: AAO x 3, well-developed, well-nourished Respiratory: chest expansion is symmetric, chest is bilaterally symmetric, lungs clear to auscultation Cardiovascular: regular rate-rhythm; No JVD; S1 and S2 Gastrointestional: tender (epigastric tenderness with palpation), soft, round, audible bowel sounds Extremities: no lower extremity edema bilateral Neurologic/Psychiatric: grossly intact Skin: No rash, No ulcerations Results/Procedures: Labs Laboratory Tests 04/11/18 19:15: Troponin I < 0.30 04/12/18 03:35: White Blood Count 6.3, Red Blood Count 4.25L, Hemoglobin 12.3, Hematocrit 37, Mean Corpuscular Volume 87, Mean Corpuscular Hemoglobin 29, Mean Corpuscular Hemoglobin Concent 33, Red Cell Distribution Width 18.1H, Platelet Count 262, Mean Platelet Volume 10.3, Sodium Level 135, Potassium Level 3.6, Chloride Level 104, Carbon Dioxide Level 18L, Anion Gap 13, Blood Urea Nitrogen 6L, Creatinine 0.65, Estimat Glomerular Filtration Rate > 60, BUN/Creatinine Ratio 9 , Glucose Level 135H, Calcium Level 8.2L, Phosphorus Level 2.0L, Magnesium Level 2.3, Total Bilirubin 0.4, Aspartate Amino Transf (AST/SGOT) 31, Alanine Aminotransferase (ALT/SGPT) 24, Alkaline Phosphatase 62, Total Protein 6.8, Albumin 4.0, Triglycerides Level 107, Cholesterol Level 270H, LDL Cholesterol Direct 196H, VLDL Cholesterol 21, HDL Cholesterol 63H 04/12/18 10:30: Troponin I < 0.30, Amylase Level 42, Lipase 9 Microbiology 04/11/18 MRSA Screen - Final, Complete MRSA not isolated Procedures NAME: CHARMAINEMICHELLE Jadon [facility] REC#: [id number] PT STATUS: ADM IN : 1945 PHYSICIAN: SAVI ORELLANA DO ADMIT DATE: 04/11/18/ICU Draft Date of Exam:04/12/18 CHEST 1 VIEW, AP/PA ONLY INDICATION: Hypertension and anxiety. Frontal chest obtained at 3:13 a.m. and compared to yesterday FINDINGS: Heart is borderline in size. Mediastinal silhouette is unremarkable. The lungs are clear. There is no pneumothorax or pleural fluid. IMPRESSION: Borderline heart size with no acute infiltrate or pneumothorax or pleural fluid. Dictated on workstation # [id number] Dict: 04/12/[id number] Trans: 04/12/18 0922 [id number] Interpreted by: COSMO FRAIRE MD Electronically signed by: A/P: Assessment: Chest pain, nausea and epigastric tenderness due to esophageal stricture and large hiatal hernia; s/p upper endoscopy and esophageal dilatation by Dr Redman on 04/12/18 Marked hypokalemia, likely due to esophageal and stomach secretion losses NSR with LBBB and ventricular bigeminy, probably related to hypokalemia - maintaining SR following replacement of electrolytes HTN, much improved after pain controlled H/O PAF - documented in Oct 2017 at [facility] - was on Amiodarone, then changed to Flecainide BID. Not started on OAC d/t reported low CHADs-VASC score Echocardiogram in Dec [address] at [facility] by [address] Larson showed LVEF 50%. LA enlargement. RA, RV enlargement. Mild MR Cardiac cath of January 2017 at [facility] [address] Larson showed normal coronaries. Normal LVEF. GERD H/O esophageal stricture with dilation HLD - LDL 196 Plan: * We obtained, reviewed and discussed her records from [facility] * HTN - improved with addition of Norvasc * Replacing K has resulted in normalization of ECG * Monitor labs * No evidence of ACS * Nausea/epigastric tenderness of undetermined etiology - medical services managing * Constipation - medical services managing * Consider GI consult for further work of epigastric pain/nausea * HLD - LDL 196, Chol 270 * Further recs based on hosp course Physician Assessment Physician Assessment Epigastric and lower cp much improved. 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
[2018-04-12 10:58] LABS: AMYLASE 42 U/L (25-125); LIPASE 9 U/L (8-78)
[2018-04-12] MEDS: SUCRALFATE 1 GM (CARAFATE) TAB PO SCH ×2 (11:15→16:25)
[2018-04-12] MEDS ORDERED: PANTOPRAZOLE 40 MG (PROTONIX) TAB PO SCH (11:15)
--- NOTE | 2018-04-12 11:19 | Short Stay Summary-Hospitalist ---
History of Present Illness HPI/Chief Complaint CC: Severe HTN and irregular heart rhythm HPI: This is a 72yoWF clinic patient of Dr [facility] in [place], Dr Graham GI specialist and Dr Gordillo Supervisor Pipelines who presented to the ER after sent by Dr. Dean's office during an eye procedure when she began having severe hypertension and irregular heart rhythm on monitor. Apparently she is also reporting weakness she she was evaluated in the ER found to have severe hypokalemia of 2.6 and bigeminy and irregular heart rhythm on telemetry. She had recently had a cardiac catheterization at [facility] one year ago that was normal no obstructive coronary artery disease. She was also reporting vague type chest pain and the chest pain protocol was initiated and cardiology felt the need to place her in observation status replace potassium and further evaluate. Considering cardiology evaluated the patient they have found no evidence of cardiac origin for the issues and considering the hypokalemia now has resolved the EKG changes are now resolved also. She does have a history of EGD with dilatation every 4 months and having acid reflux so I will consult Dr. Redman he will perform EGD today likely related car dilatation and then likely discharge. She is having hypoxia at times likely sleep apnea and Dr. Gillis recommended sleep study as an outpatient so she will have home O2 evaluation. She is requiring a great deal of fentanyl so I told her that we will discontinue that place her back on her home medicine of which she does have her own supply of hydrocodone and prevent any type of narcotic dependency while she is hospitalized. Source: patient Exam Limitations: no limitations Date Seen 04/12/18 Time Seen by Provider: 11:00 Attending Physician Alysia Cisneros DO PCP No,Local Physician Referring Physician Date of Admission Apr 11, 2018 at 11:50 Home Medications & Allergies Home Medications Reviewed patient Home Medication Reconciliation performed by pharmacy medication reconciliations semiconductor processing technician and/or nursing. Patients Allergies have been reviewed. 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) Alcohol Use: Denies Use Recreational Drug Use: No Smoking Status: Never a Smoker Physical Abuse Screen: No Sexual Abuse: No Recent Foreign Travel: No Contact w/other who traveled: No Recent Hopitalizations: No Recent Infectious Disease Expo: No Immunizations Up To Date Date of Pneumonia Vaccine: Aug 06, 2017 Seasonal Allergies Seasonal Allergies: No Past Medical History Surgeries: Appendectomy, Cardiac (cardiac catheterization January 2017 with normal coronary arteries), Gallbladder, 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 Cardiac: High Cholesterol, Hypertension, Valvular Heart Disease : No 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 Gastrointestinal: Gastroesophageal Reflux, Chronic Constipation Musculoskeletal: Osteoporosis, Arthritis HEENT: Cataract History of Blood Disorders: No Family History Cardiovascular disease G8 BROTHER FH: lung cancer G8 BROTHER FHx: lung disease 19 FATHER Hypertension Review of Systems Constitutional: see HPI, dizziness, weakness EENTM: no symptoms reported Respiratory: no symptoms reported Cardiovascular: palpitations Gastrointestinal: heartburn, loss of appetite Genitourinary: no symptoms reported Musculoskeletal: no symptoms reported Skin: no symptoms reported Psychiatric/Neurological: No Symptoms Reported All Other Systems Reviewed Negative Unless Noted: Yes Physical Exam Physical Exam Vital Signs Vital Signs - First Documented 04/11/18 04/12/18 09:06 08:00 Temp 96.1 Pulse 82 Resp 16 B/P (MAP) 184/105 (131) O2 Delivery Nasal Cannula O2 Flow Rate 2.00 Capillary Refill : Less Than 3 Seconds General Appearance: No Apparent Distress, WD/WN, Chronically ill Eyes: Bilateral Eye Normal Inspection, Bilateral Eye PERRL HEENT: PERRL/EOMI, Normal ENT Inspection, Pharynx Normal Neck: Full Range of Motion, Normal Inspection, Non Tender, Supple, Carotid Bruit Respiratory: Chest Non Tender, Lungs Clear, Normal Breath Sounds, No Accessory Muscle Use, No Respiratory Distress Cardiovascular: Regular Rate, Rhythm, No Edema, No Gallop, No JVD, No Murmur, Normal Peripheral Pulses Gastrointestinal: Normal Bowel Sounds, No Organomegaly, No Pulsatile Mass, Non Tender, Soft Back: Normal Inspection, No CVA Tenderness, No Vertebral Tenderness Extremity: Normal Capillary Refill, Normal Inspection, Normal Range of Motion, Non Tender, No Calf Tenderness, No Pedal Edema Neurologic/Psychiatric: Alert, Oriented x3, No Motor/Sensory Deficits, Depressed Affect Skin: Normal Color, Warm/Dry Lymphatic: No Adenopathy Results Results/Procedures Labs Laboratory Tests 04/11/18 09:20 04/12/18 03:35 Patient resulted labs reviewed. Short Stay Diagnosis Discharge Diagnosis-Short Stay Admission Diagnosis Assessment: Vague chest pressure with negative chest pain protocol workup Severe hypokalemia now resolved with aggressive supplementation Severe hypertensive episode now normalized Severe dysphagia with reflux requiring EGD before hospital stay discharge by Dr. Redman Frail status chronic Plan: EGD Home O2 eval Monitor closely Supplement potassium Hopefully discharged today Is continue IV fentanyl since pain is out of proportion to findings and will prevent narcotic dependency while hospitalized Final Discharge Diagnosis Assessment: Vague chest pressure with negative chest pain protocol workup Severe hypokalemia now resolved with aggressive supplementation Severe hypertensive episode now normalized Severe dysphagia with reflux requiring EGD before hospital stay discharge by Dr. Redman Frail status chronic Plan: EGD Home O2 eval Monitor closely Supplement potassium Hopefully discharged today Is continue IV fentanyl since pain is out of proportion to findings and will prevent narcotic dependency while hospitalized Conclusion Plan Plan: EGD Home O2 eval Monitor closely Supplement potassium Hopefully discharged today Is continue IV fentanyl since pain is out of proportion to findings and will prevent narcotic dependency while hospitalized Diagnosis/Problems Diagnosis/Problems (1) Chest pain Status: Acute Qualifiers: Qualified Codes: R07.9 - Chest pain, unspecified (2) Bigeminy Status: Acute (3) Dysphagia Status: Acute Qualifiers: Qualified Codes: R13.10 - Dysphagia, unspecified (4) GERD (gastroesophageal reflux disease) Status: Chronic Qualifiers: Qualified Codes: K21.0 - Gastro-esophageal reflux disease with esophagitis (5) Frailty Status: Chronic (6) Hypokalemia Status: Acute (7) Hypertension Status: Chronic Qualifiers: Qualified Codes: I10 - Essential (primary) hypertension (8) Anxiety Status: Acute (9) Hyperlipidemia Status: Chronic Qualifiers: Qualified Codes: E78.2 - Mixed hyperlipidemia (10) Esophageal stricture Status: Acute (11) Paroxysmal atrial fibrillation Status: Chronic Clinical Quality Measures AMI/AHF: ASA po Prior to arrival: No DVT/VTE Risk/Contraindication: Risk Factor Score Per Nursin RFS Level Per Nursing on Admit: 2=Moderate ALYSIA CISNEROS DO Apr 12, 2018 11:19
[2018-04-12] MEDS ORDERED: hydrOXYzine (VISTARIL) 25 MG CAP PO PRN (11:30)
[2018-04-12] MEDS ORDERED: HYDROcodone/APAP 5 MG/325 MG (LORTAB) TAB PO PRN (11:30)
--- NOTE | 2018-04-12 11:40 | Progress Note-Pre Operative ---
Pre-Operative Progress Note H&P Reviewed The H&P was reviewed, patient examined and no changes noted. Date Seen by Provider: Apr 12, 2018 Time Seen by Provider: 11:30 Date H&P Reviewed: Apr 12, 2018 Time H&P Reviewed: 11:30 Pre-Operative Diagnosis: dysphagia with hx esophageal stricture CIERRA BRAND MD Apr 12, 2018 11:40
--- NOTE | 2018-04-12 11:40 | Conscious Sedation/ASA ---
Conscious Sedation Pre-Proced Time Reviewed: 11:30 ASA Class: 2 Airway Mallampati Classification: (flandreau appropriate class) I. II. III, IV Lungs Heart ASA score ASA 1: a normal healthy patient ASA 2: a patient with a mild systemic disease (mid diabetes, controlled hypertension, obesity ASA 3: a patient with a severe systemic disease that limits activity (angina , COPD, prior Myocardial infarction) ASA 4: a patient with an incapacitating disease that is a constant threat to life (CHF, renal failure) ASA 5: a moribund patient not expected to survive 24 hrs. (ruptured aneurysm) ASA 6: a declared brain patient whose organs are being harvested. For emergent operations, add the letter E after the classification Grade 2 Sedation Plan: Analgesia, Amnesia, Plan communicated to team members, Discussed options with patient/fam, Discussed risks with patient/fam Note The patient is an appropriate candidate to undergo the planned procedure, sedation, and anesthesia. The patient immediately re-assessed prior to indication. CIERRA BRAND MD Apr 12, 2018 11:39
[2018-04-12] MEDS ORDERED: MIDAZOLAM 5 MG/5 ML (VERSED) VIAL ONE ×2 (11:52→11:53)
[2018-04-12] MEDS ORDERED: fentaNYL INJECTION 100 MCG/2 ML AMP ONE (11:53)
[2018-04-12] MEDS ORDERED: fentaNYL INJECTION 100 MCG/2 ML AMP IV NR (12:15)
[2018-04-12] MEDS ORDERED: MIDAZOLAM 5 MG/5 ML (VERSED) VIAL IV NR (12:15)
--- NOTE | 2018-04-12 12:30 | Progress Note-Post Operative ---
Post-Operative Progess Note Surgeon (s)/Meat Apprentice (s) Surgeon CIERRA BRAND MD Meat Apprentice: none Pre-Operative Diagnosis dysphagia with hx esophageal stricture Post-Operative Diagnosis severe esophageal stricture, moderate-large hiatal hernia (4cm), severe gastritis. Procedure & Operative Findings Date of Procedure 04/12/18 Procedure Performed/Findings EGD with bx and balloon dilatation. Anesthesia Type CS Estimated Blood Loss Estimated blood loss (mL): minimal Specimens/Packing Specimens Removed antrum, GE jxn CIERRA BRAND MD Apr 12, 2018 12:30 pm
--- NOTE | 2018-04-12 12:36 | CONSULTATION REPORT ---
DATE OF SERVICE: 04/12/2018 ADMITTING PHYSICIAN: Alysia Puente DO. HISTORY OF PRESENT ILLNESS: The patient is a 72-year-old female, who presented to the Emergency Department with palpitations. She was seen at her nascar driver's office for cataract surgery and during evaluation, she was found to have an erratic blood pressure as well as irregular heart rhythm and she did feel palpitations. She states that she has had this before and she sees a crepe machine operator in [place], [place]. Since being admitted and placed on fluid hydration, she has done well. She does have a longstanding history of dysphagia and esophageal stricture. She reports that she has undergone approximately 11 esophageal dilatations in the past and she usually has this procedure approximately every 4 months. At this time, she reports that she is having difficulty taking in some of her medications due to recurrent dysphagia. PAST MEDICAL HISTORY: Hypertension, hypercholesterolemia, valvular heart disease, and gastroesophageal reflux disease. PAST SURGICAL HISTORY: Cardiac catheterization, history of laparoscopic cholecystectomy, and hysterectomy. ALLERGIES: No known drug allergies. MEDICATIONS: Citalopram 40 mg daily, flecainide 150 mg b.i.d., hydroxyzine 25 mg p.r.n. mirtazapine 15 mg p.r.n., omeprazole 20 mg daily, potassium 10 mEq t.i.d., Carafate 1 gram q.i.d., suvorexant 10 mg daily, and tizanidine 4 mg daily. SOCIAL HISTORY: Negative smoke, negative alcohol. FAMILY HISTORY: Noncontributory. VITAL SIGNS: Temperature is 98.4, blood pressure 140/79, pulse 62, respirations 14, and pulse ox 99% on 2 liters nasal cannula. REVIEW OF SYSTEMS: Well-nourished female, currently in no acute distress. She is not experiencing shortness of breath or difficulty breathing. No chest pain, palpitations, or diaphoresis. Intermittent episodes of dysphagia with difficulty swallowing of solid substance with intermittent episodes of regurgitation. No hematemesis, no coffee ground emesis. No diarrhea or constipation, no red blood per rectum, and no dark tarry stools. No fever or chills, no recent inadvertent weight loss. All other review of systems is negative. PHYSICAL EXAMINATION: CHEST: Clear. Good breath sounds bilaterally. HEART: Regular, no murmurs. HEENT: No scleral icterus. NECK: No cervical lymphadenopathy. EXTREMITIES: No lower extremity edema, negative Homans sign. ABDOMEN: Soft, nontender, and nondistended. SKIN: Warm, dry. LABORATORY DATA: WBC is 6.3, hemoglobin 12.3, hematocrit 37, and platelets 262. BUN is 6, creatinine 0.65. ASSESSMENT AND PLAN: A 72-year-old female with recurrent dysphagia due to esophageal stricture. She has been symptomatic; however, was admitted for a cardiac arrhythmia and palpitations. At this time, she is stable; however, upon further questioning, she does report worsening dysphagia to the point where she is having difficulty with medications. We will proceed with the EGD as well as a biopsy and balloon dilatation of esophageal stricture. Job ID: [id number] DocumentID: [id number] Dictated Date: 04/12/2018 11:47:57 Traffic Counter Date: 04/12/2018 12:36:14 Dictated By: CIERRA BRAND MD
--- NOTE | 2018-04-12 18:42 | OPERATIVE REPORT ---
DATE OF SERVICE: 04/12/2018 ADMITTING PHYSICIAN: Dr. Puente. PREOPERATIVE DIAGNOSIS: Recurrent symptomatic dysphagia. POSTOPERATIVE DIAGNOSES: Severe distal esophageal stricture. Moderate to large size hiatal hernia approximately 4 cm in size, severe gastritis, pylorus and duodenum appeared normal with no distal obstructions. PROCEDURE: EGD with biopsy and balloon dilatation. SURGEON: Cierra Brand MD ANESTHESIA: Conscious sedation. ESTIMATED BLOOD LOSS: Minimal. FINDINGS: Severe reflux esophagitis class 3 with severe distal esophageal stricture with a previous scarring from multiple procedures. Moderate to large size hiatal hernia approximately 4 cm in size. Severe gastritis with multiple small erosions; however, no formal ulcerations. Pylorus and duodenum appeared normal with no distal obstructions. DISPOSITION: The patient tolerated the procedure well. INDICATIONS: The patient is a 72-year-old female, who was admitted yesterday for palpitations. She was being evaluated for cataract surgery and during the process she was found to have an irregular heartbeat as well as symptomatic palpitations and was referred to the hospital where she was admitted. Since being admitted and placed on beta blockade and IV fluids as she has felt much better and she has been in sinus rhythm. Upon further questioning, she reports that she has had difficulty taking her medications due to recurrent severe dysphagia. She reports that she has been seeing a senior product engineer and does usually normally have dilatation of her lower esophagus about every 4 months. She reports that her dysphagia has worsened and may be the cause of why she has not been able to take some of her medications. DESCRIPTION OF PROCEDURE: The patient remained in the ICU and under conscious sedation and adequate pain and sedating medications were given and the mouthpiece was applied. Endoscope was placed in the mouth, visualizing the pharynx and hypopharyngeal region. Vocal cords, epiglottis and vallecula identified and appeared to be normal. Endoscope was then gently intubated in the esophageal opening and esophagus insufflated. The endoscope was then advanced to the first, second and third portions of the esophagus to the level of the distal esophagus, a reflux esophagitis class C identified with scar tissue identified and a severe distal esophageal stricture identified. A biopsy was taken of the GE junction with forceps with visualization of good hemostasis. The GE junction was also intrathoracic consistent with either a type 1 or type 3 hiatal hernia. The endoscope was able to go through the area of the stricture and the endoscope retroflexed visualizing the hiatal hernia, which appeared to be a type 3. The hiatal hernia was approximately 4 cm in size. There was a severe gastritis, which was diffuse and multiple small erosions; however, no formal ulcerations, polyps or any neoplasms. A biopsy was taken of the antrum for H. pylori with visualization of good hemostasis. The endoscope was then advanced to the pylorus and the first and second portion of the duodenum, which appeared normal with no distal obstructions. We then proceeded with the dilatation of the distal esophageal stricture. The medium sized CRE fixed guidewire balloon was placed into the stomach and pulled back to the area of stricture. We first proceeded to 3 atmospheres of pressure or 16 mm in diameter with no resistance. We then proceeded to 4.5 atmospheres of pressure or 17.5 mm in diameter with mild resistance. We then proceeded to 6 atmospheres of pressure or approximately 18 mm in diameter while we encountered moderate resistance and left the balloon in place for approximately 60 seconds. The balloon was then desufflated and removed. No mucosal tears were identified as well as no bleeding. The endoscope was then slowly withdrawn taking a second look and suctioning of residual air with no additional findings. The patient tolerated the procedure well. We will switch her from her omeprazole to Protonix 40 mg daily; however, she does need to continue the Carafate on a q.i.d. basis. We will also start a DYS3 soft diet and once she is tolerating liquids and diet as well as able to take her medications, she may be discharged home at any time. Job ID: [id number] DocumentID: [id number] Dictated Date: 04/12/2018 12:37:33 Lead Systems Developer Date: 04/12/2018 18:42:42 Dictated By: CIERRA BRAND MD [facility] HOSPITALJoaquin
[2018-04-12] MEDS ORDERED: FLECAINIDE ACETATE 75 MG PO SCH (21:00)
[2018-04-12] MEDS ORDERED: SUVOREXANT 10 MG PO SCH (21:00)
[2018-04-12] MEDS ORDERED: MIRTAZAPINE 15 MG (REMERON) TAB PO PRN (21:00)
== END 2018-04-12 18:30 | disposition home or self-care (01) | DRG 392 ==
LOC: ER 09:07 → ICU 11:50
PROVIDERS: ADMIT Internal Medicine; ATTEND Internal Medicine
PROC: 0DB48ZX Excision of Esophagogastric Junction, Via Natural or Artificial Opening Endoscopic, Diagnostic (ICD-10-PCS; 2018-04-12)
PROC: 0DB78ZX Excision of Stomach, Pylorus, Via Natural or Artificial Opening Endoscopic, Diagnostic (ICD-10-PCS; 2018-04-12)
PROC: 0D758ZZ Dilation of Esophagus, Via Natural or Artificial Opening Endoscopic (ICD-10-PCS; principal; 2018-04-12 12:00)
DX: K22.2 Esophageal obstruction (principal); K44.9 Diaphragmatic hernia without obstruction or gangrene; E87.6 Hypokalemia; R00.8 Other abnormalities of heart beat; K29.70 Gastritis, unspecified, without bleeding; I10 Essential (primary) hypertension; E78.00 Pure hypercholesterolemia, unspecified; I48.0 Paroxysmal atrial fibrillation; J45.909 Unspecified asthma, uncomplicated; G47.33 Obstructive sleep apnea (adult) (pediatric); I34.1 Nonrheumatic mitral (valve) prolapse; I44.7 Left bundle-branch block, unspecified; F41.9 Anxiety disorder, unspecified; R11.0 Nausea; E83.39 Other disorders of phosphorus metabolism; K21.9 Gastro-esophageal reflux disease without esophagitis; K59.09 Other constipation; M81.0 Age-related osteoporosis without current pathological fracture; M19.91 Primary osteoarthritis, unspecified site
CPT/HCPCS: 36415; 71045; 80048; 80053; 80061; 81000; 82150; 82962; 83690; 83735; 83874; 84100; 84443; 84484; 85025; 85027; 85610; 85730; 87081; 88305; 93005; 93041; 94761; 96361; 96372; 96374; 96376